=== PATIENT | male | born 1945 | race Caucasian/White ===

== ENCOUNTER → 2024-07-06 | Outpatient (CLI) | payer OTHER ==
--- NOTE | 2024-07-06 13:25 | MR ---
EXAMINATION TYPE: MR brain wo/w con DATE OF EXAM: 07/06/2024 11:47 AM COMPARISON: None. CLINICAL INDICATION: Male, 78 years old with history of G44.52 NEW DAILY PERSISTENT HEADACHE, New ons et Headache, memory loss TECHNIQUE: Multi planar, multi sequence imaging was performed through the brain including: T1, T2, In version recovery, susceptibility weighted imaging and gradient echo imaging and Diffusion weighted im aging. The patient was then given intravenous contrast and multi planar, T1 fat-saturation images wer e obtained. IV Contrast: 7.5 mL Gadobutrol FINDINGS: Mild cerebral atrophy with proportional dilation of ventricular system. Diffusion-weighted imaging s hows no evidence of restricted diffusion to suggest acute/subacute infarct. Intracranial arterial morgan w voids are maintained. Midline structures show no abnormality. Scattered foci of high T2 signal inte nsity are seen within the periventricular white matter. The susceptibility weighted images right fron raymon lobe punctate focus of blooming artifact. This is compatible with microhemorrhage. After administ ration of gadolinium, no abnormal enhancement is seen. The bone marrow signal is within normal limits. Paranasal sinuses and mastoid air cells: Moderate right maxillary sinus mucosal thickening.. Visualized orbits: Orbital contents are intact. IMPRESSION: 1. No evidence of intracranial mass, acute/subacute infarct, or abnormal enhancement. 2. Nonspecific white matter changes, likely related to small vessel ischemic disease. 3. Moderate right maxillary sinus paranasal sinus disease. [facility], , 07/06/2024 1:22 PM
== END | disposition home or self-care (01) ==
LOC: RADMRIMAIN 10:43
PROVIDERS: ATTEND Family Medicine
DX: J34.89 Other specified disorders of nose and nasal sinuses (principal); G44.52 New daily persistent headache (NDPH); R90.82 White matter disease, unspecified
CPT/HCPCS: 70553; A9585